=== PATIENT | female | born 1935 | race Caucasian/White ===

== ENCOUNTER → 2020-03-30 | Outpatient (CLI) | payer MEDICARE ==
--- NOTE | 2020-03-30 13:57 | US ---
EXAMINATION TYPE: US venous doppler duplex LE DATE OF EXAM: 03/30/2020 12:10 PM COMPARISON: NONE CLINICAL HISTORY: I82.90 DVT BILATERAL. sore on bottom of left foot SIDE PERFORMED: Bilateral TECHNIQUE: The lower extremity deep venous system is examined utilizing real time linear array sonog mirna with graded compression, doppler sonography and color-flow sonography. VESSELS IMAGED: External Iliac Vein (EIV) Common Femoral Vein Deep Femoral Vein Greater Saphenous Vein * Femoral Vein Popliteal Vein Small Saphenous Vein * Proximal Calf Veins (* superficial vessels) Right Leg: Negative for DVT Left Leg: Negative for DVT IMPRESSION: 1. No diagnostic evidence of DVT.
== END | disposition home or self-care (01) ==
LOC: RADUSWWP 11:34
PROVIDERS: ATTEND Podiatrist Foot & Ankle Surgery
DX: I82.403 Acute embolism and thrombosis of unspecified deep veins of lower extremity, bilateral (principal)
CPT/HCPCS: 93970